=== PATIENT | female | born 2000 | race African-American/Black ===

== ENCOUNTER → 2021-08-03 | Outpatient (CLI) | payer OTHER ==
[2021-08-03 08:58] LABS: ALBUMIN 4.3 g/dL (3.5-5.0); POTASSIUM 4.6 mmol/L (3.5-5.1)
[2021-08-03 08:59] LABS: CALCIUM 9.9 mg/dL (8.3-10.5)
[2021-08-03 09:02] LABS: TOTAL BILIRUBIN 0.3 mg/dL (0.2-1.2)
[2021-08-03 09:21] LABS: BASO # 0.02 K/mm3 (0.02-0.10); EOS # 0.08 K/mm3 (0.04-0.40); EOS % 1.8 % (0.1-4.0); HEMATOCRIT 37.3 % (35.0-45.0); HEMOGLOBIN 12.1 g/dL (12.0-15.0); LYMPH# 1.25 K/mm3 (1.20-3.40); MEAN CELL VOLUME 81 fl (78-95); MEAN CORPUSCULAR HEMOGLOBIN 26 pg (26-32); MEAN CORPUSCULAR HGB CONC 32 g/dL (33-37); MEAN PLATELET VOLUME 11.1 fl (7.4-10.4); MONO # 0.24 K/mm3 (0.10-0.60); NEU # 2.77 K/mm3 (1.40-6.50); PLATELET COUNT 333 K/mm3 (130-400); RED BLOOD COUNT 4.63 M/mm3 (4.10-5.30); RED CELL DISTRIBUTION WIDTH 14.7 % (11.5-14.5); WHITE BLOOD COUNT 4.4 K/mm3 (4.8-10.8)
== END ==
LOC: LAB 08:20
PROVIDERS: Physician Assistant
DX: Z13.29 Encounter for screening for other suspected endocrine disorder (principal); Z13.1 Encounter for screening for diabetes mellitus; R42 Dizziness and giddiness; K90.9 Intestinal malabsorption, unspecified; Z83.2 Family history of diseases of the blood and blood-forming organs and certain disorders involving the immune mechanism